=== PATIENT | female | born 1940 | race Caucasian/White ===

== ENCOUNTER 2016-10-14 11:00 | Inpatient (IN) | payer MEDICARE, BC ==
[~2016-10-14 11:00] MED LIST: ADVAIR 2501 DISK W/D; ALBUTEROL17 GM; ALLEGRA180 MG; AMIODARONE HCL200 MG; APRESOLINE50 MG; ASTELIN137 MCG; AVALIDE 300-12.1 TAB; COREG25 MG; COUMADIN5 MG; COUMADIN7.5 MG; HUMALOG100 U/ML; K-DUR20 MEQ; LANTUS100 U/ML; LASIX20 MG; LASIX80 MG; LEXAPRO20 MG; LISINOPRIL40 MG; LOVENOX60 MG/0.6; NEURONTIN600 MG; PROTONIX40 MG; PULMICORT180 MCG/AE; SPIRIVA18 MCG; TRAZODONE HCL50 MG; VYTORIN 10/20 T1 TAB
[2016-10-14] MEDS ORDERED: NORVASC5 M2 PO (11:08)
[2016-10-14] MEDS ORDERED: ASPIR-LOW81 M1 PO (11:09)
[2016-10-14] MEDS ORDERED: ANTI-ITCH LOTI222 ML TP (11:09)
[2016-10-14] MEDS ORDERED: LIPITOR80 M1 PO (11:09)
[2016-10-14] MEDS ORDERED: RISAMINE OINTM113 G1 TP ×2 (11:10)
[2016-10-14] MEDS ORDERED: COREG25 M1 PO (11:11)
[2016-10-14] MEDS ORDERED: NEURONTIN300 M1 PO (11:12)
[2016-10-14] MEDS ORDERED: LEXAPRO20 M2 PO (11:12)
[2016-10-14] MEDS ORDERED: DOK100 M2 PO (11:12)
[2016-10-14] MEDS ORDERED: HUMALOG100 UNIT/2 SC (11:14)
[2016-10-14] MEDS ORDERED: HYDROCORTISONE28 G2 TP (11:16)
[2016-10-14] MEDS ORDERED: SYNTHROID100 MC1 PO (11:16)
[2016-10-14] MEDS ORDERED: LEVEMIR FL100 UNIT/2 SC (11:16)
[2016-10-14] MEDS ORDERED: LOPERAMIDE2 M2 PO (11:17)
[2016-10-14] MEDS ORDERED: MAPAP325 M2 PO (11:17)
[2016-10-14] MEDS ORDERED: CLARITIN10 M6 PO (11:17)
[2016-10-14] MEDS ORDERED: SINGULAIR10 M1 PO (11:18)
[2016-10-14] MEDS ORDERED: MILK OF MAGNESIA PO (11:18)
[2016-10-14] MEDS ORDERED: [UNRECOGNIZED DRUG - OTHER] PO (11:18)
[2016-10-14] MEDS ORDERED: MUCINEX DM ER1 EAC1 PO (11:20)
[2016-10-14] MEDS ORDERED: PROTONIX40 M2 PO (11:22)
[2016-10-14] MEDS ORDERED: ZOFRAN4 M2 PO (11:22)
[2016-10-14] MEDS ORDERED: MUPIROCIN22 G2 TP (11:22)
[2016-10-14] MEDS ORDERED: PROAIR HFA8.5 GM INH (11:23)
[2016-10-14] MEDS ORDERED: PETROLEUM JELL368 GM TP (11:23)
[2016-10-14] MEDS ORDERED: ALDACTONE25 M1 PO (11:23)
[2016-10-14] MEDS ORDERED: REQUIP2 M1 PO (11:23)
[2016-10-14] MEDS ORDERED: TORSEMIDE100 M1 PO (11:24)
[2016-10-14] MEDS ORDERED: ULTRAM50 M1 PO (11:25)
[2016-10-14] MEDS ORDERED: COUMADIN4 M1 PO (11:25)
[2016-10-14] MEDS ORDERED: VITAMIN D31000 UNI4 PO (11:25)
[2016-10-14] MEDS ORDERED: COUMADIN5 M2 PO (11:26)
[2016-10-14 11:47] LABS: BASO % 0.7 % (0-2); BASO ABSOLUTE COUNT 0.1 tho/cmm (0.0-0.2); EOS % 6.8 % (0-7); EOSINOPHIL ABSOLUTE COUNT 0.5 tho/cmm (0.0-0.7); HCT-HEMATOCRIT 38.7 % (34.0-49.0); HGB-HEMOGLOBIN 12.4 gm/dl (12.0-15.5); IMMATURE GRANULOCYTES ABSOLUTE 0.02 tho/cmm (0-0.03); IMMATURE GRANULOCYTES PERCENT 0.3 % (0-0.3); LYMPH % 14.5 % (20-45); LYMPH ABSOLUTE COUNT 1.1 tho/cmm (0.8-4.5); MCV (MEAN CELL VOLUME) 93.5 fl (82.0-96.0); MEAN PLATELET VOLUME 9.8 cmc (9.4-12.4); MONO % 7.7 % (0-12); MONOCYTE ABSOLUTE COUNT 0.6 tho/cmm (0.0-1.2); NEUTROPHIL ABSOLUTE COUNT 5.1 tho/cmm (1.6-8.0); NEUTROPHIL-AUTOMATED 5.1 tho/cmm (1.6-8.0); PLATELET COUNT 190 tho/cmm (150-450); RED BLOOD COUNT 4.14 mil/cmm (4.00-5.20); RED CELL DISTRIBUTION WIDTH 13.5 % (12.4-16.4); WHITE BLOOD COUNT 7.3 tho/cmm (4.0-10.0)
[2016-10-14 11:55] LABS: URINE APPEARANCE HAZY; URINE BILIRUBIN NEGATIVE (NEG); URINE BLOOD MODERATE (NEG); URINE COLOR YELLOW; URINE GLUCOSE (UA) MODERATE (NEG); URINE KETONE NEGATIVE (NEG); URINE LEUKOCYTE ESTERASE POSITIVE (NEG); URINE NITRITE NEGATIVE (NEG); URINE PROTEIN NEGATIVE (NEG); URINE SPECIFIC GRAVITY 1.015 (1.003-1.030)
[2016-10-14 11:59] LABS: ALB/GLOB RATIO 0.7 (0.8-2.0); ALBUMIN 3.2 g/dl (3.5-5.0); ALKALINE PHOSPHATASE 160 U/L (33-138); ALT/SGPT 14 U/L (12-78); BILIRUBIN,TOTAL 0.4 mg/dl (0-1.5); BLOOD UREA NITROGEN 56 mg/dl (6-24); CARBON DIOXIDE-VENOUS 31 mmol/L (22-32); CHLORIDE 99 mmol/l (96-110); CREATININE 2.46 mg/dl (0.50-1.10); GLUCOSE 348 mg/dL (70-110); SODIUM 138 mmol/L (135-145); eGFR VALUE FOR BLACK 21 mL/Min
[2016-10-14 12:01] LABS: ANION GAP 12 mmol/L (0-20); AST/SGOT 17 U/L (10-40); POTASSIUM 4.4 mmol/L (3.7-5.1)
[2016-10-14 12:12] LABS: INR 2.1 INR (0.9-1.1); PROTHROMBIN TIME 24.4 SECONDS (9.0-13.6)
[2016-10-14 12:14] LABS: URINE WBC FULL FIELD /[HPF] (0-5)
[2016-10-14 12:15] LABS: URINE BACTERIA 3+
[2016-10-15 06:18] LABS: BASO % 0.5 % (0-2); EOS % 8.2 % (0-7); EOSINOPHIL ABSOLUTE COUNT 0.5 tho/cmm (0.0-0.7); HCT-HEMATOCRIT 35.4 % (34.0-49.0); HGB-HEMOGLOBIN 11.2 gm/dl (12.0-15.5); IMMATURE GRANULOCYTES ABSOLUTE 0.01 tho/cmm (0-0.03); IMMATURE GRANULOCYTES PERCENT 0.2 % (0-0.3); LYMPH % 20.7 % (20-45); LYMPH ABSOLUTE COUNT 1.2 tho/cmm (0.8-4.5); MCH (MEAN CORPUSCULAR HGB) 29.5 pg (28.0-32.0); MCHC MEAN CORPUSCULAR HGB CONC 31.6 % (32.0-36.0); MCV (MEAN CELL VOLUME) 93.2 fl (82.0-96.0); MEAN PLATELET VOLUME 9.5 cmc (9.4-12.4); MONO % 8.2 % (0-12); MONOCYTE ABSOLUTE COUNT 0.5 tho/cmm (0.0-1.2); NEUTROPHIL ABSOLUTE COUNT 3.6 tho/cmm (1.6-8.0); NEUTROPHIL-AUTOMATED 3.6 tho/cmm (1.6-8.0); NEUTROPHILS % 62.2 % (40-80); PLATELET COUNT 193 tho/cmm (150-450); RED CELL DISTRIBUTION WIDTH 13.6 % (12.4-16.4); WHITE BLOOD COUNT 5.8 tho/cmm (4.0-10.0)
[2016-10-15 06:26] LABS: INR 2.4 INR (0.9-1.1); PROTHROMBIN TIME 28.4 SECONDS (9.0-13.6)
[2016-10-15 06:36] LABS: BLOOD UREA NITROGEN 46 mg/dl (6-24); CALCIUM 9.4 mg/dl (8.5-10.5); CARBON DIOXIDE-VENOUS 32 mmol/L (22-32); CHLORIDE 106 mmol/l (96-110); CREATININE 2.28 mg/dl (0.50-1.10); POTASSIUM 4.1 mmol/L (3.7-5.1); eGFR VALUE FOR BLACK 23 mL/Min
[2016-10-15 06:39] LABS: ANION GAP 12 mmol/L (0-20); GLUCOSE 137 mg/dL (70-110); SODIUM 146 mmol/L (135-145)
[2016-10-16 08:23] LABS: INR 2.1 INR (0.9-1.1); PROTHROMBIN TIME 24.8 SECONDS (9.0-13.6)
[2016-10-17 05:54] LABS: INR 1.9 INR (0.9-1.1); PROTHROMBIN TIME 22.5 SECONDS (9.0-13.6)
== END 2016-10-17 15:45 | disposition home health service (06) | DRG 683 ==
LOC: EDMED 11:00 → EMR2 14:37 → 5WE 18:03
PROVIDERS: Emergency Medicine; Nurse Practitioner Acute Care; ADMIT Hospitalist
DX: N17.9 Acute kidney failure, unspecified (principal); N30.00 Acute cystitis without hematuria; E11.22 Type 2 diabetes mellitus with diabetic chronic kidney disease; I42.9 Cardiomyopathy, unspecified; Z68.41 Body mass index [BMI] 40.0-44.9, adult; I48.91 Unspecified atrial fibrillation; E86.0 Dehydration; N39.0 Urinary tract infection, site not specified; I12.9 Hypertensive chronic kidney disease with stage 1 through stage 4 chronic kidney disease, or unspecified chronic kidney disease; G47.33 Obstructive sleep apnea (adult) (pediatric); I95.1 Orthostatic hypotension; N18.4 Chronic kidney disease, stage 4 (severe); R29.6 Repeated falls; B96.20 Unspecified Escherichia coli [E. coli] as the cause of diseases classified elsewhere; R06.01 Orthopnea; E66.01 Morbid (severe) obesity due to excess calories; J45.909 Unspecified asthma, uncomplicated; Z79.01 Long term (current) use of anticoagulants; Z79.82 Long term (current) use of aspirin; Z95.0 Presence of cardiac pacemaker
CPT/HCPCS: J1815; J2405; J2543; J7030; P9612